=== PATIENT | female | born 1950 | race Caucasian/White ===

== ENCOUNTER 2016-09-22 17:29 | Emergency (ER) | payer MEDICARE, OTHER ==
[~2016-09-22] VITALS: Ht 162.6 cm; Wt 74.0 kg
[2016-09-22 17:30] VITALS: BP 143/67; PULSE 82; RESP 20; TEMP 98.7; O2SAT 97
--- NOTE | 2016-09-22 18:15 | PD ---
Physical Exam Time Seen by Provider: 18:13 Narrative 66yo F c/o Left hip pain after fall today. Denies hitting head or LOC. PCP told to come in for evaluation. Denies anticoagulants. Hx of bilateral hip replacement; left two times. Patient seen in triage. VS reviewed. Awaiting bed placement. Data Data Last Documented VS Vital Signs Date Time Temp Pulse Resp B/P Pulse Ox O2 Delivery O2 Flow Rate FiO2 09/22/16 17:30 98.7 82 20 143/67 97 Room Air MDM Supervised Visit with MARGARITA: Lorie Molina Sep 22, 2016 18:15
--- NOTE | 2016-09-22 19:06 | RADRPT ---
EXAM DATE/TIME: 09/22/2016 18:50 [facility] COMPARISON: No previous studies available for comparison. INDICATIONS : Left hip and groin pain after fall today. MEDICAL HISTORY : None. SURGICAL HISTORY : Bilateral hip replacements. ENCOUNTER: Initial ACUITY: 1 day PAIN SCORE: 10/10 LOCATION: Left hip. FINDINGS: AP views of the pelvis were obtained as well as AP and frog-leg lateral views of left hip. The patien t is status post bilateral hip arthroplasty. Components are intact and in normal alignment. There are cerclage wires surrounding the proximal left femoral component. There is diffuse osteopenia with no acute fracture or malalignment. CONCLUSION: 1. Osteopenia with no acute fracture or malalignment. 2. Status post bilateral hip arthroplasties. Harry Calhoun MD on September 22, 2016 at 19:02 Board Certified Radiologist. This report was verified electronically.
--- NOTE | 2016-09-22 20:48 | PD ---
HPI Chief Complaint: Hip Injury Time Seen by Provider: 20:46 Travel History International Travel<30 days: No Contact w/Intl Traveler<30days: No Traveled to known affect area: No History of Present Illness HPI Patient is a 66-year-old female presenting to emergency department evaluation of left hip pain. Patient states she fell she tripped over her flip flop earlier today. She landed on her left hip. Patient reports pelvic pain as well , she took a half a Lortab prior to arrival. Patient states that it's painful to bear weight, reporting her pain as 7 out of 10. Patient is not on any anticoagulants, she denies any head injury, loss of consciousness, back pain, abdominal pain, chest pain or shortness of breath. [facility] Past Medical History Musculoskeletal: Yes (degenerative joint) Past Surgical History Joint Replacement: Yes (left hip twice, right hip 1.) Social History Alcohol Use: No Tobacco Use: No Substance Use: No Allergies-Medications (Allergen,Severity, Reaction): Coded Allergies: No Known Allergies (Unverified , 09/22/16) Review of Systems Except as stated in HPI: all other systems reviewed are Neg Musculoskeletal: Positive: Myalgias, Arthralgias, Edema, Pain Physical Exam Narrative GENERAL: Well-nourished, well-developed patient. SKIN: Focused skin assessment warm/dry. HEAD: Normocephalic. EYES: No scleral icterus. No injection or drainage. NECK: Supple, trachea midline. No JVD or lymphadenopathy. CARDIOVASCULAR: Regular rate and rhythm without murmurs, gallops, or rubs. RESPIRATORY: Breath sounds equal bilaterally. No accessory muscle use. GASTROINTESTINAL: Abdomen soft, non-tender, nondistended. MUSCULOSKELETAL: No cyanosis, edema noted to the lateral aspect of the left hip , prior surgical incision noted, no erythema or ecchymosis. Left leg is shorter than the right, this is chronic. Patient is neurovascularly intact. BACK: Nontender without obvious deformity. No CVA tenderness. Data Data Last Documented VS Vital Signs Date Time Temp Pulse Resp B/P Pulse Ox O2 Delivery O2 Flow Rate FiO2 09/22/16 17:30 98.7 82 20 143/67 97 Room Air Orders Hip, Uni(Ap&Lat) W Ap Pelvis (09/22/16 18:15) Orphenadrine Inj (Norflex Inj) (09/22/16 21:15) Dexamethasone Inj (Decadron Inj) (09/22/16 21:15) MDM Medical Decision Making Medical Screen Exam Complete: Yes Emergency Medical Condition: Yes Interpretation(s) Last Impressions Hip and Pelvis X-Ray 09/22/161814 Signed Impressions: Service Date/Time: Thursday, September 22, 2016 18:50 - CONCLUSION: 1. Osteopenia with no acute fracture or malalignment. 2. Status post bilateral hip arthroplasties. Harry Calhoun MD Vital Signs Date Time Temp Pulse Resp B/P Pulse Ox O2 Delivery O2 Flow Rate FiO2 09/22/16 17:30 98.7 82 20 143/67 97 Room Air Differential Diagnosis Fracture versus dislocation versus hematoma versus sprain versus strain versus other Narrative Course Patient is a 66-year-old female presenting to emergency evaluation of left hip pain after sustaining a mechanical fall at noon today. Patient is neurovascularly intact, imaging ordered and pending. Patient's vital signs are stable. Imaging of the left hip shows no acute abnormality, mechanical hardware is intact. Patient reported pain and stiffness, she was given Norflex and dexamethasone in the emergency department. Patient was reassessed abruptly 45 minutes after administration and she reports improvement in her symptoms. Patient has a walker at home, she was encouraged to use this until she begins to feel better to avoid any further falls. Patient encouraged to follow-up with her primary care provider. She was given strict return precautions. Patient verbalized understanding of discharge instructions. Patient is stable for discharge. Diagnosis Primary Impression: Hip pain, left Additional Impression: Fall Qualified Code: W19.XXXA - Fall, initial encounter Referrals: Dany Bryant MD 2 days Patient Instructions: General Instructions, Hip Contusion (ED) Additional Instructions: Follow-up with your primary care provider Take medications as directed Apply ice to affected area for the first 24 hours then heat Continue range of motion exercises Use walker until pain improves to avoid falls Return to emergency department for any new or worsening symptoms Med/Other Pt SpecificInfo: Prescription(s) given Scripts Lidocaine (Lidoderm)5 % Adh..patch1 Patch TD DAILY PRN (PAIN SCALE 1 TO 10) #10 Remove patch after 12 hours, leave patch off for 12 hours. Prov:Diane Hernández 09/22/16 Prednisone 50 Mg Tab50 Mg PO DAILY 3 Days Ref 0 Prov:Diane Hernández 09/22/16 Cyclobenzaprine (Flexeril)10 Mg Tab10 Mg PO TID PRN (MUSCLE SPASM) 10 Days Ref 0 Prov:Diane Hernández 09/22/16 Disposition: 01 DISCHARGE HOME Condition: Stable Diane Hernández Sep 22, 2016 20:48
[2016-09-22] MEDS ORDERED: ORPHENADRINE INJ 60 MG/2 ML AMP IM ONE (21:15)
[2016-09-22] MEDS ORDERED: DEXAMETHASONE SOD PHOS 20 MG/5 ML VIAL IM ONE (21:15)
[2016-09-22] MEDS ORDERED: LIDO5DIS5 TD (22:06)
[2016-09-22] MEDS ORDERED: CYCL1TAB29 PO (22:06)
[2016-09-22] MEDS ORDERED: PRED50 PO (22:06)
== END 2016-09-22 22:19 | disposition home or self-care (01) ==
LOC: NEPD 17:29
DX: M25.552 Pain in left hip (principal); M85.80 Other specified disorders of bone density and structure, unspecified site; W01.0XXA Fall on same level from slipping, tripping and stumbling without subsequent striking against object, initial encounter
CPT/HCPCS: 73502; 96372; 99284; J1100; J2360

== ENCOUNTER 2016-12-03 02:05 | Emergency (ER) | payer MEDICARE, OTHER ==
[~2016-12-03] VITALS: Ht 162.6 cm; Wt 68.0 kg
[~2016-12-03 02:05] MED LIST: CYCL1TAB29 PO; LIDO5DIS5 TD; PRED50 PO
[2016-12-03 02:08] VITALS: BP 140/83; PULSE 61; RESP 16; TEMP 98.2; O2SAT 97
--- NOTE | 2016-12-03 02:47 | PD ---
HPI Chief Complaint: Fall Time Seen by Provider: 02:37 Travel History International Travel<30 days: No Contact w/Intl Traveler<30days: No Traveled to known affect area: No History of Present Illness HPI The patient is a 66 year old female who presents to the [facility] emergency department with a history of reportedly falling when she tripped over a canister on the floor at approximately 12:30 AM. The patient reports that she was preparing to go to bed when this occurred. She reports that she landed on her left shoulder. She reports that she hit the back of her head, however she denies having any headache. She denies having any loss of consciousness. She denies having any neck pain, numbness or tingling to her arms or legs. She denies having any weakness of her extremities. She reports that she felt a pop in the left shoulder. She reports that she had a sling in place at home, therefore she placed her arm in the sling and took 2-7.5 mg Lortab prior to arrival. On review of systems, she denies having any recent fevers, cough, congestion, chest pain, shortness of breath, abdominal pain, vomiting, diarrhea , urinary symptoms, or neurologic symptoms. The patient denies taking any aspirin or other blood thinners. 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 Joint Replacement: Yes (left hip twice, right hip 1.) Social History Alcohol Use: No Tobacco Use: No Substance Use: No Allergies-Medications (Allergen,Severity, Reaction): Coded Allergies: No Known Allergies (Unverified , 12/03/16) Reported Meds & Prescriptions Reported Meds & Active Scripts Active Reported Levothyroxine (Levothyroxine Sodium) 25 Mcg Tab 25 Mcg PO DAILY Bactrim (Sulfamethoxazole-Trimethoprim) 400-80 Mg Tab 1 Tab PO BID Lasix (Furosemide) 20 Mg Tab 20 Mg PO BID Atenolol 25 Mg Tab 12.5 Mg PO BID [place] (Hydrocodone-Acetaminophen) 5-325 mg Tab 1 Tab PO Q4H PRN Review of Systems Except as stated in HPI: all other systems reviewed are Neg General / Constitutional: No: Fever Eyes: No: Visual changes HENT: No: Headaches, Neck Stiffness, Neck Pain Cardiovascular: No: Chest Pain or Discomfort Respiratory: No: Shortness of Breath Gastrointestinal: No: Nausea, Vomiting, Diarrhea, Abdominal Pain Genitourinary: No: Dysuria Musculoskeletal: Positive: Arthralgias, Limited ROM, Pain Skin: No Rash Neurologic: No: Weakness Psychiatric: No: Depression Endocrine: No: Polydipsia Hematologic/Lymphatic: No: Easy Bruising Physical Exam Narrative General: The patient is a well-developed well-nourished female in no acute distress. Head and Neck exam: Head is normocephalic atraumatic. No scalp tenderness, scalp contusion, erythema, or ecchymosis on examination and palpation. Eyes: EOMI, pupils are equal round and reactive to light. Nose: Midline septum with pink mucous membranes Mouth: Dentition unremarkable. Moist mucus membranes. Posterior oropharynx is not erythematous. No tonsillar hypertrophy. Uvula midline. Airway patent. Neck: No palpable lymphadenopathy. No nuchal rigidity. No thyromegaly. No spinous process tenderness to palpation. No step-off or crepitus. No erythema or ecchymosis. Cardiovascular: Regular rate and rhythm without murmurs, gallops, or rubs. Lungs: Clear to auscultation bilaterally. No wheezes, rhonchi, or rales. Abdomen: Soft, without tenderness to palpation in all 4 quadrants of the abdomen. No guarding, rebound, or rigidity. Normal bowel sounds are audible. No tenderness on palpation of McBurney's point. Extremities: No clubbing, cyanosis, or edema. 2+ pulses in all 4 extremities. The area of interest is the left shoulder. The patient has tenderness on palpation of the proximal humerus, distal clavicle. The patient has no crepitus. The patient has pain with any attempts at range of motion. The patient has no elbow or wrist pain. The patient has full range of motion with full strength in her wrist and hand. The patient has intact sensation over all fingertips. The patient has less than 3 second capillary refill. Back: No spinous process tenderness to palpation. No spinous process tenderness to palpation. No step-off or crepitus. No erythema or ecchymosis. No costovertebral angle tenderness to palpation. Neurologic Exam: Cranial nerves 2-12 were intact on exam. Strength is 5/5 in all 4 extremities. No sensory deficits noted. Skin Exam: No rash noted. Intact skin that is warm and dry. Data Data Last Documented VS Vital Signs Date Time Temp Pulse Resp B/P (MAP) Pulse Ox O2 Delivery O2 Flow Rate FiO2 12/03/16 02:08 98.2 61 16 140/83 (102) 97 Orders Orders Ice/Cold Pack (12/03/16 03:06) Shoulder, Limited(2vws) (12/03/16 03:06) Splint Or Brace Apply/Monitor (12/03/16 04:05) MDM Medical Decision Making Medical Screen Exam Complete: Yes Emergency Medical Condition: Yes Medical Record Reviewed: Yes Differential Diagnosis Left shoulder dislocation, versus fracture, versus musculoskeletal strain, versus contusion, versus rotator cuff injury Narrative Course During the course of the patients emergency department visit, the patients history, examination, and differential diagnosis were reviewed with the patient. The patient had an x-ray of the left shoulder ordered. The patient was initially provided an ice pack to the left shoulder. Radiology studies were reviewed and remarkable for a left shoulder x-ray that reveals a left humeral surgical neck fracture that is slightly comminuted, impacted. No other acute abnormality. The patient was placed in a sling and swath. The patient is instructed on rest, ice, elevation and compression of the area of swelling. The patient is given the name of the orthopedic physician on-call for follow-up, Dr. Snyder. The patient is given a prescription for pain medication. The patient is resting comfortably and feels better, is alert and in no distress. The patients results and examination findings were discussed with the patient. The repeat examination is unremarkable and benign. The history, exam, diagnostic testing, and current condition do not suggest any significant pathology to warrant further testing, continued ED treatment, admission, or surgical evaluation at this point. The vital signs have been stable. The patient does not have uncontrollable pain, intractable vomiting, or other significant symptoms. The patient's condition is stable and appropriate for discharge. The patient will pursue further outpatient evaluation with a primary care physician or other designated or consulting physician as indicated in the discharge instructions. The patient expressed understanding and was agreeable with this plan. Diagnosis Primary Impression: Fall Qualified Codes: W19.XXXA - Unspecified fall, initial encounter Additional Impressions: Left shoulder pain Qualified Codes: M25.512 - Pain in left shoulder Left humeral fracture Qualified Codes: S42.215A - Unspecified nondisplaced fracture of surgical neck of left humerus, initial encounter for closed fracture Referrals: Guille Snyder MD 3 days Patient Instructions: General Instructions, Proximal Humerus Fracture (ED) Med/Other Pt SpecificInfo: Prescription(s) given Scripts Hydrocodone-Acetaminophen (Lortab) 10-325 Mg Tab 1 TAB PO Q6H Y for PAIN, #16 TAB 0 Refills Prov: Jessie Carrera MD 12/03/16 Disposition: 01 DISCHARGE HOME Condition: Stable Jessie Carrera MD Dec 03, 2016 02:47
[2016-12-03] MEDS ORDERED: FURO1TAB62 PO (03:16)
[2016-12-03] MEDS ORDERED: LEVO25TA4 PO (03:16)
[2016-12-03] MEDS ORDERED: NORC5TAB PO (03:16)
[2016-12-03] MEDS ORDERED: ATEN25TA PO (03:16)
[2016-12-03] MEDS ORDERED: BACT400T PO (03:16)
--- NOTE | 2016-12-03 04:03 | RADRPT ---
EXAM DATE/TIME: 12/03/2016 03:33 [facility] COMPARISON: No previous studies available for comparison. INDICATIONS : Left shoulder pain. MEDICAL HISTORY : None. SURGICAL HISTORY : None. ENCOUNTER: Initial ACUITY: 1 day PAIN SCORE: 8/10 LOCATION: Left shoulder. FINDINGS: There is a slightly comminuted impacted fracture of the left humeral surgical neck. The there is jagdeep omic alignment of the glenohumeral joint. Remaining osseous structures are intact. Visualized portion s of the lungs are clear. CONCLUSION: 1. Left humeral surgical neck fracture, as above. Kaushal Carballo MD on December 03, 2016 at 4:00 Board Certified Radiologist. This report was verified electronically.
[2016-12-03] MEDS ORDERED: HYDR-3535 PO (04:10)
== END 2016-12-03 04:59 | disposition home or self-care (01) ==
LOC: NEPE 02:05
DX: S42.215A Unspecified nondisplaced fracture of surgical neck of left humerus, initial encounter for closed fracture (principal); M16.12 Unilateral primary osteoarthritis, left hip; E05.00 Thyrotoxicosis with diffuse goiter without thyrotoxic crisis or storm; W01.0XXA Fall on same level from slipping, tripping and stumbling without subsequent striking against object, initial encounter; Z79.899 Other long term (current) drug therapy
CPT/HCPCS: 29240; 73030